=== PATIENT | female | born 1995 | race Caucasian/White ===

== ENCOUNTER 2019-04-19 17:27 | Emergency (ER) | payer BC ==
[2019-04-19] MEDS ORDERED: ONDANSETRON 4 MG TAB.RAPDIS PO ONE (18:00)
[2019-04-19] MEDS ORDERED: NORMAL SALINE 1000 ML 1,000 ML IV ONE ×2 (18:00→21:19)
[2019-04-19] MEDS ORDERED: MORPHINE SULFATE 10 MG/ML INJ IV ONE (18:00)
--- NOTE | 2019-04-19 18:02 | ER Document Report ---
ED Medical Screen (RME) - General Chief Complaint: Fever Stated Complaint: BACK PAIN Time Seen by Provider: 04/19/19 17:56 Mode of Arrival: Wheelchair Information source: Patient Notes: Patient is a 23-year-old female who presents to the ER today for abdominal pain that radiates to the right flank since yesterday, worsening in intensity. Patient states she has a history of polycystic kidney disease and states that she "thinks one ruptured today." She states she has not had one in over a year. She admits to lightheadedness with this and feeling of having a fever. TRAVEL OUTSIDE OF THE [place] IN LAST 30 DAYS: No - Related Data Allergies/Adverse Reactions: No Known Allergies Allergy (Unverified 04/19/19 17:29) Past Medical History - General Information source: Patient Review of Systems - Review of Systems Constitutional: See HPI Genitourinary: See HPI Physical Exam - Vital signs Vitals: Temp Pulse Resp BP Pulse Ox 100.0 F 129 H 16 121/68 100 04/19/19 17:32 04/19/19 17:32 04/19/19 17:32 04/19/19 17:32 04/19/19 17:32 - Notes Notes: PHYSICAL EXAMINATION: GENERAL: in mild acute distress, writhing in pain ABDOMEN: Guarding, diffusely tender Course - Vital Signs Vital signs: Temp Pulse Resp BP Pulse Ox 100.0 F 129 H 16 121/68 100 04/19/19 17:32 04/19/19 17:32 04/19/19 17:32 04/19/19 17:32 04/19/19 17:32
[2019-04-19 18:40] LABS: HEMATOCRIT 41.3 % (36.0-47.0); HEMOGLOBIN 14.2 g/dL (12.0-15.5); MEAN CORPUSCULAR HEMOGLOBIN 31.2 pg (27.0-33.4); MEAN CORPUSCULAR HGB CONC 34.5 g/dL (32.0-36.0); MEAN CORPUSCULAR VOLUME 90 fl (80-97); PLATELET COUNT 318 10^3/uL (150-450); RED BLOOD COUNT 4.57 10^6/uL (3.72-5.28); RED CELL DISTRIBUTION WIDTH 12.2 % (11.5-14.0); WHITE BLOOD COUNT 14.8 10^3/uL (4.0-10.5)
[2019-04-19 18:51] LABS: ALANINE AMINOTRANSFERASE 17 U/L (9-52); ALBUMIN 4.6 g/dL (3.5-5.0); ALKALINE PHOSPHATASE 75 U/L (38-126); ANION GAP 13 (5-19); ASPARTATE AMINO TRANSFERASE 18 U/L (14-36); BILIRUBIN,DIRECT 0.2 mg/dL (0.0-0.4); BILIRUBIN,TOTAL 0.5 mg/dL (0.2-1.3); BLOOD UREA NITROGEN 9 mg/dL (7-20); CALCIUM 9.8 mg/dL (8.4-10.2); CARBON DIOXIDE 23 mmol/L (22-30); CHLORIDE 98 mmol/L (98-107); GLUCOSE 134 mg/dL (75-110); LIPASE 35.9 U/L (23-300); POTASSIUM 4.1 mmol/L (3.6-5.0); SODIUM 133.5 mmol/L (137-145); TOTAL PROTEIN 8.2 g/dL (6.3-8.2)
[2019-04-19 19:00] LABS: ABSOLUTE LYMPHOCYTES# (MANUAL) 1.3 10^3/uL (0.5-4.7); ABSOLUTE MONOCYTES # (MANUAL) 0.9 10^3/uL (0.1-1.4); ABSOLUTE NEUTROPHILS# (MANUAL) 12.6 10^3/uL (1.7-8.2); BAND NEUTROPHILS % (MANUAL) 5 % (3-5); BASOPHILS % (MANUAL) 0 % (0-2); EOSINOPHILS % (MANUAL) 0 % (0-6); LYMPHOCYTES % (MANUAL) 9 % (13-45); MONOCYTES % (MANUAL) 6 % (3-13); SEGMENTED NEUTROPHILS % (MAN) 80 % (42-78); TOTAL CELLS COUNTED 100
[2019-04-19 19:02] LABS: PLATELET COMMENT ADEQUATE
[2019-04-19 19:03] LABS: HYPOCHROMASIA SLIGHT; TOXIC GRANULATION SLIGHT; TOXIC VACUOLATION PRESENT
[2019-04-19 19:30] LABS: AMORPHOUS SEDIMENT,URINE TRACE /HPF; APPEARANCE,URINE CLEAR; BILIRUBIN,URINE NEGATIVE (NEGATIVE); COLOR,URINE YELLOW; GLUCOSE, URINE NEGATIVE (NEGATIVE); KETONES,URINE NEGATIVE (NEGATIVE); LEUKOCYTE ESTERASE,URINE TRACE (NEGATIVE); NITRITE,URINE NEGATIVE (NEGATIVE); PROTEIN,URINE NEGATIVE (NEGATIVE); URINE SPECIFIC GRAVITY 1.028; UROBILINOGEN,URINE NEGATIVE mg/dL (<2.0)
--- NOTE | 2019-04-19 19:55 | ER Document Report ---
ED General - General Chief Complaint: Fever Stated Complaint: BACK PAIN Time Seen by Provider: 04/19/19 17:56 Mode of Arrival: Wheelchair Notes: Patient is a 23-year-old female with past medical history of polycystic kidney disease, history of cystic rupture who presents with an acute onset of severe generalized abdominal pain worse towards the bilateral flanks and right upper abdomen. Pain is described as a severe, throbbing, constant discomfort. Worsened by movement, nothing improves the pain. States this feels similar although much more intense than episodes of cystic kidney rupture she has had in the past. States that she has had tactile fever at home but has not recorded a temperature. Denies dysuria, hematuria. Nausea but no vomiting. Does not have a local primary care physician as she just moved here within the last 2 weeks. TRAVEL OUTSIDE OF THE [place] IN LAST 30 DAYS: No - Related Data Allergies/Adverse Reactions: No Known Allergies Allergy (Unverified 04/19/19 17:29) Past Medical History - General Information source: Patient - Social History Smoking Status: Never Smoker Frequency of alcohol use: None Drug Abuse: None Lives with: Spouse/Significant other Family History: Reviewed & Not Pertinent Patient has suicidal ideation: No Patient has homicidal ideation: No Renal/ Medical History: Denies: Hx Peritoneal Dialysis Review of Systems - Review of Systems Notes: Constitutional: Negative for fever. HENT: Negative for sore throat. Eyes: Negative for visual changes. Cardiovascular: Negative for chest pain. Respiratory: Negative for shortness of breath. Gastrointestinal: Positive for bilateral flank pain, abdominal pain, nausea Genitourinary: Negative for dysuria. Musculoskeletal: Negative for back pain. Skin: Negative for rash. Neurological: Negative for headaches, weakness or numbness. 10 point ROS negative except as marked above and in HPI. Physical Exam - Vital signs Vitals: Temp Pulse Resp BP Pulse Ox 100.0 F 129 H 16 121/68 100 04/19/19 17:32 04/19/19 17:32 04/19/19 17:32 04/19/19 17:32 04/19/19 17:32 Interpretation: Tachycardic Notes: PHYSICAL EXAMINATION: GENERAL: Appears uncomfortable, somewhat ill but in no overt distress HEAD: Atraumatic, normocephalic. EYES: Pupils equal round and reactive to light, extraocular movements intact, sclera anicteric, conjunctiva are normal. ENT: nares patent, oropharynx clear without exudates. Moderately dry mucous membranes. NECK: Normal range of motion, supple without lymphadenopathy LUNGS: Breath sounds clear to auscultation bilaterally and equal. No wheezes rales or rhonchi. HEART: Regular rate and rhythm without murmurs ABDOMEN: Soft, generalized tenderness without obvious focality, bilateral CVA tenderness, normoactive bowel sounds. No guarding, no rebound. No masses appreciated. EXTREMITIES: Normal range of motion, no pitting or edema. No cyanosis. NEUROLOGICAL: No focal neurological deficits. Moves all extremities spontaneousl y and on command. PSYCH: Anxious, tremulous SKIN: Warm, Dry, normal turgor, no rashes or lesions noted. Course - Re-evaluation Re-evalutation: 04/19/19 19:54 Patient presents with diffuse generalized abdominal pain as well as bilateral flank pain with associated nausea and subjective fever. Ill in appearance on exam, notably tachycardic at the time of my evaluation 123 bpm. Tremulous and shaking apparently from pain on initial evaluation. Labs broadly unremarkable with exception of a nonspecific leukocytosis. CT scan of the abdomen pelvis is pending given patient's degree of generalized abdominal pain and history of re quiring hospitalization from cyst rupture from her kidneys. 04/19/19 21:18 Patient is sleeping when I walk into the room on reassessment. Vitals show continued mild tachycardia at 108. Patient's repeat abdominal exam improved. CT scan of the abdomen and pelvis is completely unremarkable and does not demonstrate any evidence of polycystic kidneys. I went back and readdress this with the patient and she informs me that she has not actually been diagnosed with polycystic kidney disease rather that she has been told she has "stress- induced cyst formation". At this point I have explained to the patient that I do not have an identified cause of her pain. She appears quite well at this time, much calmer after receiving hydromorphone. Patient's ongoing tachycardia does raise concern. I will therefore provide additional IV fluids, Toradol, and continue to monitor. I have explained to the patient at length that given the absence of a definitive cause she does have a very low threshold to return to the emergency department. Will empirically cover with antibiotics and culture urine given bilateral flank pain in case this is an atypical presentation of pyelonephritis with an otherwise normal laboratory assessment. At this point based on imaging, labs and exam does not appear to be from the leg acute life- threatening or surgical cause. - Vital Signs Vital signs: Temp Pulse Resp BP Pulse Ox 100.0 F 129 H 18 116/69 99 04/19/19 20:00 04/19/19 17:32 04/19/19 20:00 04/19/19 20:00 04/19/19 20:00 - Laboratory Result Diagrams: 04/19/19 18:20 04/19/19 18:20 Laboratory results interpreted by me: 04/19/19 04/19/19 04/19/19 18:20 18:20 19:00 WBC 14.8 H Seg Neuts % (Manual) 80 H Lymphocytes % (Manual) 9 L Abs Neuts (Manual) 12.6 H Sodium 133.5 L Glucose 134 H Urine Blood SMALL H Ur Leukocyte Esterase TRACE H - Diagnostic Test Radiology reviewed: Reports reviewed Discharge - Discharge Clinical Impression: Bilateral flank pain, Generalized abdominal pain, Abdominal pain of unknown etiology Condition: Good Disposition: HOME, SELF-CARE Additional Instructions: You have been seen in the Emergency Department (ED) for abdominal pain. Your evaluation did not identify a clear cause of your symptoms but was generally reassuring. As we discussed, given that there is not a definitive diagnosis here today you need to have a very low threshold to return to the emergency department. Please follow-up with your doctor within the next 24 to 48 hours regarding today's visit and for reassessment. Return to the ED if your abdominal pain worsens or fails to improve, you develop bloody vomiting, bloody diarrhea, you are unable to tolerate fluids due to vomiting, fever greater than 101, or other symptoms that concern you. Prescriptions: Cephalexin Monohydrate [Keflex 500 mg Capsule] 500 mg PO Q6H 7 Days capsule
[2019-04-19] MEDS ORDERED: HYDROMORPHONE HCL INJ/PF 2 MG/ML AMPULE IV PRN (20:34)
--- NOTE | 2019-04-19 20:34 | RADIOLOGY REPORT (SQ) ---
EXAM DESCRIPTION: CT ABDOMEN PELVIS WITH IV CONTRAST COMPLETED DATE/TME: 04/19/2019 19:52 CLINICAL HISTORY: 23 years, Female, diffuse ab pain, hx polycystic kidney with rupture This exam was performed according to our departmental dose-optimization program which includes automated exposure control, adjustment of the mA and/or kVp according to patient size and/or use of iterative reconstruction technique where applicable. FINDINGS: Visualized lung bases are within normal limits. Liver, spleen, pancreas, gallbladder, adrenal glands and kidneys are within normal limits. No hydronephrosis or biliary dilatation. No dilated loops of bowel to suggest obstruction. Mild amount of stool in the colon. The appendix is normal. No free fluid or free air. Bladder is unremarkable. Gynecologic organs are unremarkable. No abdominal or pelvic lymphadenopathy. Abdominal aorta is within normal limits. IMPRESSION: No evidence for acute appendicitis. No acute pathology.
[2019-04-19] MEDS ORDERED: KETOROLAC TROMETHAMINE INJ/PF 30 MG/1 ML SDV IV ONE (21:19)
[2019-04-19] MEDS ORDERED: CEPHALEXIN 500 MG CAPSULE PO ONE (21:26)
[2019-04-19 22:32] VITALS: BP 122/80
== END 2019-04-19 22:38 | disposition home or self-care (01) ==
LOC: ER 17:27
DX: R10.84 Generalized abdominal pain (principal); R00.0 Tachycardia, unspecified; R11.0 Nausea; R10.817 Generalized abdominal tenderness; D72.829 Elevated white blood cell count, unspecified
CPT/HCPCS: 99284; 96361; 96374; 96375; 36415; 87086; 83690; 85025; 81025; 80053; 81001; 74177; S0119; J1885; J2270; J1170; J7030